=== PATIENT | female | born 1980 | race Caucasian/White ===

== ENCOUNTER 2018-01-02 11:45 | Day surgery (SDC) | payer BC ==
[~2018-01-02 11:45] MED LIST: CEFAZOLIN 1 GM INJ; ROCURONIUM 50 MG INJ; SUCCINYLCHOLINE CHLORIDE 100 MG/5 ML SYG IV
[2018-01-02] MEDS ORDERED: FENTAnyl 50 MCG/ML VIAL (12:28)
[2018-01-02] MEDS ORDERED: MIDAZOLAM 1 MG/ML 2 ML INJ (12:29)
[2018-01-02] MEDS ORDERED: METOCLOPRAMIDE 10 MG INJ (12:29)
[2018-01-02] MEDS ORDERED: LIDOCAINE 2% (SDV) 5 ML INJ (12:34)
[2018-01-02] MEDS ORDERED: PROPOFOL 20 ML (12:34)
[2018-01-02] MEDS ORDERED: ROPIVACAINE 0.5 % 30 ML VIAL (14:23)
[2018-01-02] MEDS: POLYMYXIN/BACITRACIN 1L IRRIG (16:21)
[2018-01-02] MEDS: NEOMYC/POLYMYX/BACIT 30 GM OINT (16:22)
[2018-01-02] MEDS ORDERED: SUGAMMADEX SODIUM 200 MG/2 ML VIAL IV (17:41)
[2018-01-02] MEDS ORDERED: FENTAnyl 50 MCG/ML VIAL IV ×2 (18:00)
[2018-01-02] MEDS ORDERED: ONDANSETRON 4 MG INJ IV (18:00)
[2018-01-02] MEDS ORDERED: DIPHENHYDRAMINE 50 MG INJ IV (18:00)
[2018-01-02] MEDS ORDERED: hydrALAzine 20 MG INJ IV (18:00)
[2018-01-02] MEDS ORDERED: IPRATROPIUM (NEB) 0.5 MG/2.5 ML AMP HHN (18:00)
[2018-01-02] MEDS ORDERED: MEPERIDINE 25 MG INJ IV (18:00)
[2018-01-02] MEDS ORDERED: HYDROmorphONE 1 MG/5 ML IV SYRINGE IV ×2 (18:00)
[2018-01-02] MEDS ORDERED: LABETALOL HCL 20MG INJ IV (18:00)
[2018-01-02] MEDS ORDERED: morphine 2 MG INJ IV (18:00)
== END 2018-01-02 19:55 | disposition home or self-care (01) ==
LOC: SDS 11:45
DX: M25.372 Other instability, left ankle (principal); M65.872 Other synovitis and tenosynovitis, left ankle and foot; I10 Essential (primary) hypertension; E78.5 Hyperlipidemia, unspecified; E66.9 Obesity, unspecified; Z68.35 Body mass index [BMI] 35.0-35.9, adult
CPT/HCPCS: 27695; 73610; 82306